=== PATIENT | female | born 1970 | race African-American/Black ===

== ENCOUNTER 2017-11-22 15:08 | Observation (INO) | payer OTHER ==
[~2017-11-22] VITALS: Ht 175.3 cm; Wt 120.2 kg
--- OUTSIDE RECORDS SUMMARY | 2017-11-22 15:11 | XMS REPORT | Clinical Summary ---
Author Author MELVI [facility] Address Unknown Phone Unavailable Care Team Providers Care Yard Spotter Name Role Phone PCP Unavailable Allergies No Known Allergies Current Medications No known medications Active Problems Not on file Social History Tobacco Use Types Packs/Day Years Used Date Current Every Day Smoker Alcohol Use Drinks/Week oz/Week Comments No Sex Assigned at Date Recorded Not on file Last Filed Vital Signs Not on file Plan of Treatment Not on file Results Not on fileafter 11/21/2016
[2017-11-22] MEDS ORDERED: ASPIRIN 81 MG CHEW TAB PO ONE ×2 (15:45→17:45)
--- NOTE | 2017-11-22 16:09 | Diagnostic Imaging Report ---
Examination: Single AP view of the chest. COMPARISON: None. INDICATION: Chest pain DISCUSSION: The lungs are hypoinflated, without focal consolidation, pleural effusion, or pneumothorax. Cardiomediastinal contour and pulmonary vasculature are within normal limits when accounting for portable, AP technique and degree of inspiratory effort. No acute osseous abnormalities. IMPRESSION: Low lung volumes without acute cardiopulmonary abnormality. Signed by: Dr. Jose Elias Maradiaga M.D. on 11/22/2017 4:06 PM
[2017-11-22 16:22] LABS: BASOPHILS % 0.5 % (0.0-1.0); EOSINOPHILS # (AUTO) 0.1 (0.0-0.4); EOSINOPHILS % 2.2 % (0.0-6.0); HEMATOCRIT 37.2 % (34.2-44.1); HEMOGLOBIN 12.4 g/dL (12.0-16.0); MEAN CORPUSCULAR HEMOGLOBIN 28.4 pg (28-32); MEAN CORPUSCULAR HGB CONC 33.3 g/dL (31-35); MEAN CORPUSCULAR VOLUME 85.1 fL (81-99); MONOCYTES # (AUTO) 0.5 (0.2-0.8); MONOCYTES % 7.5 % (4.4-11.3); NEUTROPHILS # (AUTO) 3.7 (2.1-6.9); NEUTROPHILS % 58.3 % (38.7-80.0); PLATELET COUNT 174 x10e3/uL (140-360); RED BLOOD COUNT 4.37 x10e6/uL (3.6-5.1); RED CELL DISTRIBUTION WIDTH 12.5 % (11.7-14.4)
[2017-11-22 16:33] LABS: INR 0.87; PROTHROMBIN TIME 12.7 seconds (11.9-14.5)
[2017-11-22 16:34] LABS: PARTIAL THROMBOPLASTIN TIME 25.2 seconds (23.8-35.5)
[2017-11-22 16:36] LABS: CLARITY,URINE CLEAR (CLEAR); COLOR,URINE YELLOW (YELLOW)
[2017-11-22 16:37] LABS: BILIRUBIN,URINE NEGATIVE (NEGATIVE); KETONES,URINE NEGATIVE (NEGATIVE); LEUKOCYTE ESTERASE ,URINE NEGATIVE (NEGATIVE); NITRITE,URINE NEGATIVE (NEGATIVE); PROTEIN,URINE DIPSTICK NEGATIVE (NEGATIVE); URINE UROBILINOGEN 0.2 mg/dL (0.2 - 1)
[2017-11-22 16:42] LABS: ALANINE AMINOTRANSFERASE 30 IU/L (0-55); ALBUMIN 4.1 g/dL (3.5-5.0); ALBUMIN/GLOBULIN RATIO 1.4 (0.8-2.0); ALKALINE PHOSPHATASE 62 IU/L (40-150); ANION GAP 15.7 mmol/L (8-16); BLOOD UREA NITROGEN 11 mg/dL (7-26); BUN/CREATININE RATIO 12 (6-25); CALCIUM 9.4 mg/dL (8.4-10.2); CARBON DIOXIDE 23 mmol/L (22-29); CHLORIDE 104 mmol/L (98-107); CREATINE KINASE 125 IU/L (29-168); CREATININE, SERUM 0.93 mg/dL (0.57-1.11); EST GLOMERULAR FILTRATION RATE > 60 ML/MIN (60-); GLUCOSE 82 mg/dL (74-118); POTASSIUM 3.7 mmol/L (3.5-5.1); SODIUM 139 mmol/L (136-145)
[2017-11-22 16:51] LABS: CHOL/HDL RATIO 3.8 (3.0-3.6)
[2017-11-22 16:52] LABS: BACTERIA,URINE RARE /HPF; EPITHELIAL CELLS,URINE FEW /LPF
[2017-11-22] MEDS ORDERED: NITROGLYCERIN 0.4 MG SUBL SL PRN (17:45)
[2017-11-22] MEDS ORDERED: ONDANSETRON HCL INJ 2 MG/ML VIAL IV PRN (18:15)
[2017-11-22] MEDS ORDERED: HYDRALAZINE HCL 20 MG/ML VIAL IV PRN (18:15)
[2017-11-22] MEDS ORDERED: ACETAMINOPHEN 325 MG TAB PO PRN (18:15)
[2017-11-22] MEDS: FAMOTIDINE 20 MG TAB PO SCH (18:31)
--- OUTSIDE RECORDS SUMMARY | 2017-11-22 19:00 | XMS REPORT ---
Author Author [facility] Address Unknown Phone Unavailable Care Team Providers Care Assembler Steam [employer] Gas Turbine Name Role Phone Jodee GABRIEL Unavailable Unavailable Problems This patient has no known problems. Allergies, Adverse Reactions, Alerts This patient has no known allergies or adverse reactions. Medications This patient has no known medications. Results Test Description Test Time Test Comments Text Results Atomic Results Result Comments CHEST SINGLE (PORTABLE) 2017-11-22 16:05:00 [place] [address] Patient Name: EREN FELIX MR #: [id number] : 1970 Age/Sex: 47/F Req #: [id number] Adm Physician: Ordered by: ALEXI GABRIEL MD Report #: [id number] Location: ER Room/Bed: Procedure: [id number] DX/CHEST SINGLE (PORTABLE) Exam Date: Exam Time: REPORT STATUS: Signed Examination: Single AP view of the chest. COMPARISON: None. INDICATION: Chest pain DISCUSSION: The lungs are hypoinflated, without focal consolidation, pleural effusion, or pneumothorax. Cardiomediastinal contour and pulmonary vasculature are within normal limits when accounting for portable, AP technique and degree of inspiratory effort. No acute osseous abnormalities. IMPRESSION: Low lung volumes without acute cardiopulmonary abnormality. Signed by: Dr. Chris Olivarez M.D. on 11/22/2017 4:06 PM Dictated By: CHRIS OLIVAREZ MD [id number] Transcribed By: BERLIN on 11/22/17 160 COPY TO: ALEXI GABRIEL MD
--- OUTSIDE RECORDS SUMMARY | 2017-11-22 19:00 | XMS REPORT | Clinical Summary ---
Author Author MELVI [facility] Address Unknown Phone Unavailable Care Team Providers Care Human Services Assistant Name Role Phone PCP Unavailable Allergies No [...]
[2017-11-22 20:34] VITALS: BP 116/58
[2017-11-22 20:35] VITALS: BP 116/58
[2017-11-22] MEDS ORDERED: GLIPIZIDE10 MG PO (22:31)
[2017-11-22] MEDS: INSULIN LISPRO 100 UNIT/1 ML 3ML VIAL SQ SCH (22:56)
[2017-11-23] VITALS: BP 118/58
[2017-11-23 00:26] LABS: CREATINE KINASE 116 IU/L (29-168)
[2017-11-23 04:00] VITALS: BP 106/53
[2017-11-23 05:28] LABS: CREATINE KINASE MB 1.5 ng/mL (0-5.0)
[2017-11-23] MEDS: FAMOTIDINE 20 MG TAB PO SCH (05:57)
[2017-11-23 07:16] VITALS: BP 119/56
[2017-11-23] MEDS: INSULIN LISPRO 100 UNIT/1 ML 3ML VIAL SQ SCH (07:30)
[2017-11-23 08:55] VITALS: BP 119/56
[2017-11-23] MEDS ORDERED: ASPIRIN 81 MG ENTERIC COATED PO SCH (09:00)
[2017-11-23 11:09] VITALS: BP 120/58
--- NOTE | 2017-11-23 11:42 | Consultation ---
DATE OF CONSULTATION: REASON FOR CONSULTATION: Chest pain. HISTORY OF PRESENT ILLNESS: This is a 47-year-old female with history of diabetes since 2015 and hyperlipidemia. Patient presents to [facility] ER with complaints of chest pain for about 2 weeks. Cardiology was consulted to evaluate patient. Patient seen in room in no acute distress, reports having right-sided chest pain for about 2 weeks off and on, describes the chest pain as "discomfort" for the past few weeks. Denies any associated symptoms with episodes, again lasting for few minutes at a time and occurs several times a day. However, patient came to the ER because of the strong family history of CAD. Her father at age of 54 from [place] and patient is very concerned. Currently, patient is with no chest pain. PAST MEDICAL HISTORY: Diabetes uncontrolled since 2014 and hyperlipidemia. SURGICAL HISTORY: Breast augmentation, hysterectomy. FAMILY HISTORY: Mother at age 52 from lymphoma. Father at age 54 from [place]. SOCIAL HISTORY: She is single. 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 She is a former smoker. She quit in 2017. She would smoke half a pack per day. Apparently, alcohol use is social. Also, marijuana use is social. Reports last episode about 6 months ago. HOME MEDICATIONS: Trulicity once a week, glipizide 10 mg b.i.d., and also she takes cholesterol medicine, but does not know which medication. ALLERGIES: NO KNOWN ALLERGIES. REVIEW OF SYSTEMS GENERAL: Denies any weight changes, fatigue, weakness, fevers, chills, night sweats. SKIN: No rashes, sores, or lumps. HEENT: Denies any headaches, nausea, or vomiting. Positive for vision changes, blurriness. Denies vertigo, earaches, discharge, any sneezing, stuffiness, epistaxis, sore throat, hoarseness, swollen neck. CARDIAC: Positive for chest pain as above. Positive for dyspnea on exertion. Positive for intermittent palpitations. Denies any orthopnea, PND. RESPIRATORY: Position for dyspnea on exertion. Denies any hemoptysis. GI: Good appetite. No nausea, vomiting, diarrhea, constipation, melena, hematochezia, abdominal pain. URINARY: Denies any frequency, urgency, polyuria, dysuria, hematuria. VASCULAR: Denies any lower extremity edema, claudication, varicose veins. MUSCULOSKELETAL: Denies any muscle weakness, joint pains, back pains. NEUROLOGIC: Does complaint of lower extremity numbness, tingling. Denies any tremors, paralysis, fainting, blackouts, seizures. HEMATOLOGY: Denies any anemia, easy bruising. ENDOCRINE: Denies any heat or cold intolerance, any polyuria, polydipsia, polyphagia. PHYSICAL EXAMINATION VITALS: Height 69 inches, weight 265 pounds. BMI 39. Temperature 97.9, pulse 65, respiratory rate 16, blood pressure 119/56, pulse ox 98% on room air. GENERAL: Appears stated age. Reliable informant. SKIN: No rashes or bruises noted. HEENT: Normocephalic. Pupils are equal and reactive. Extraocular movements intact. Trachea midline. No thyromegaly. No carotid bruit noted. HEART: Regular rate and rhythm. No murmurs, clicks, gallops. PMI 4th and 5th intercostal space. LUNGS: Bilateral breast sounds clear to auscultation. Good airway entry and exit. ABDOMEN: Soft, nontender, nondistended. No organomegaly noted. MUSCULOSKELETAL: Good muscle strength throughout. No lower extremity edema. VASCULAR: +2 bilateral radial pulses. +1 DP, PT pulses bilaterally. NEUROLOGIC: Cranial nerves II through XII seem intact. LABS: Sodium 139, potassium 3.7, chloride 104, BUN 11, creatinine 0.9. A1c 8.8. Troponin less than 0.001, next less than 0.001, next 0.016. Hematology: White count 6.3, hemoglobin 12.4, hematocrit 37, platelets 174. EKG showing normal sinus rhythm with left axis deviation. IMAGING: Chest x-ray, no acute abnormalities. ASSESSMENT 1. Chest pain. 2. Diabetes, uncontrolled. 3. Obesity. 4. Family history of coronary artery disease. 5. Former smoker. PLAN: Patient presents with chest pain with mixed features. Negative enzymes x3 thus far. EKG without changes suggest no acute event. However, patient with very strong family history of CAD. Patient is very concerned and would like ischemic evaluation. We will obtain echo to evaluate heart function structure. We will go ahead and do a stress test to evaluate for symptoms. Also continue aspirin therapy for now. We will start low-dose statin therapy for now. Thank you very much for this consult. We will continue to follow patient and adjust cardiac therapy as course indicates. Dictated by: Jose Elias Arnold NP Job#: [id number] VAS
--- NOTE | 2017-11-23 12:27 | Cardiology Report ---
DATE OF STUDY: November 23, 2017 CARDIAC STRESS TEST TECHNICAL DETAILS: The protocol is Mook with target heart rate of 148 per minute. RESULTS 1. Patient exercised for a total of 8 minutes 31 seconds. 2. Heart rate increased from 62 per minute to 149 per minute. 3. Blood pressure increased from 140/60 to 167/107. 4. No chest pain. 5. No EKG changes. IMPRESSION: Negative cardiac stress test. Limitations of a negative cardiac stress test are explained and discussed. Job#: [id number]
--- NOTE | 2017-11-23 15:02 | Discharge Summary ---
PRIMARY CARE PHYSICIAN: ROCKY SKY MD with [facility]. FINAL DIAGNOSIS: Non-cardiac chest pain possibly due to anxiety or stress. SECONDARY DIAGNOSES 1. Diabetes. 2. Obesity. 3. Dyslipidemia. NUMERICAL CONTROL OPERATOR: Dr. Hoffman. PROCEDURES/STUDIES PERFORMED: 1. Echocardiogram. 2. Stress test. HISTORY: Per H&P. HOSPITAL COURSE: The patient had 3 negative troponins; therefore, no myocardial infarction. Stress test was done due to multiple risk factors, which was negative. The patient was reassured. Her echocardiogram preliminary was unremarkable. The patient's hemoglobin A1c is down to 8.8%. The patient is going home today. I have also notified her primary care physician about this hospitalization. The patient was seen and examined today. CONDITION ON DISCHARGE: Stable. DISCHARGE MEDICATIONS: Please see medication reconciliation form. XAVI ASHFORD M.D. Job#: [id number] cc:ROCKY SKY MD
[2017-11-23] MEDS ORDERED: ATORVASTATIN 10 MG TAB PO SCH (21:00)
== END 2017-11-23 13:25 | disposition home or self-care (01) ==
LOC: ER 15:08 → ERHOLD 17:36 → IMCU 20:35
PROVIDERS: ADMIT Internal Medicine; ATTEND Internal Medicine
DX: R07.9 Chest pain, unspecified (principal); E11.65 Type 2 diabetes mellitus with hyperglycemia; E78.5 Hyperlipidemia, unspecified; E66.9 Obesity, unspecified; Z68.39 Body mass index [BMI] 39.0-39.9, adult; Z82.49 Family history of ischemic heart disease and other diseases of the circulatory system; Z87.891 Personal history of nicotine dependence; Z79.84 Long term (current) use of oral hypoglycemic drugs
CPT/HCPCS: 36415; 71045; 80053; 80061; 81001; 82550 ×2; 82553 ×2; 82948 ×2; 83036; 83880; 84484 ×2; 85025; 85610; 85730; 93005; 93017; 93306; 99284; G0378 ×2

== ENCOUNTER 2018-07-08 12:09 | Emergency (ER) | payer OTHER ==
[~2018-07-08] VITALS: Ht 175.3 cm; Wt 122.5 kg
[~2018-07-08 12:09] MED LIST: GLIPIZIDE10 MG PO
--- OUTSIDE RECORDS SUMMARY | 2018-07-08 12:11 | XMS REPORT | Clinical Summary ---
Author Author [facility]ELVI [facility] Address Unknown Phone Unavailable Care Team Providers Care Master Printer Name Role Phone Sharpless PCP Allergies No Known Allergies Medications No known medications Active Problems Not on file Social History Date Tobacco Use Types Packs/Day Years Used Current Every Day Smoker Alcohol Use Drinks/Week oz/Week Comments No Sex Assigned at Date Recorded Not on file Industry Job Start Date Occupation Not on file Not on file Not on file Travel End Travel History Travel Start No recent travel history available. Last Filed Vital Signs Not on file Plan of Treatment Not on file Results Not on fileafter 07/07/2017 Insurance Payer Benefit Subscriber ID Type Phone Address Plan / Group [employer] - [place] [employer] [place] x[place] HMO/POS HMO/POS OPEN ACCESS
[2018-07-08] MEDS ORDERED: TRAMADOL HCL 50 MG TAB PO NR (12:30)
[2018-07-08] MEDS ORDERED: HYDROCODONE/APAP 10MG-325MG TAB PO ONE (12:45)
--- NOTE | 2018-07-08 13:53 | Diagnostic Imaging Report ---
FOOT LEFT COMPLETE - 3 views HISTORY: Pain COMPARISON: None available. FINDINGS: Bones: No acute displaced fracture. Osseous alignment is within normal limits. Small plantar calcaneal enthesophyte. Joints: The joint spaces are well-maintained. Soft tissues: The soft tissues appear unremarkable. IMPRESSION: No acute radiographic abnormality. Signed by: Dr. Mook Padilla MD on 07/08/2018 1:49 PM
[2018-07-08 15:21] VITALS: BP 130/80
== END 2018-07-08 15:23 | disposition home or self-care (01) ==
LOC: ER 12:09
DX: M79.672 Pain in left foot (principal); S96.912A Strain of unspecified muscle and tendon at ankle and foot level, left foot, initial encounter; E11.9 Type 2 diabetes mellitus without complications; E78.5 Hyperlipidemia, unspecified
CPT/HCPCS: 99283

== ENCOUNTER 2020-12-28 22:37 | Emergency (ER) | payer OTHER ==
[~2020-12-28] VITALS: Ht 175.3 cm; Wt 122.5 kg
[2020-12-28] MEDS ORDERED: KETOROLAC TROMETHAMINE 30 MG/ML VIAL IV STA (22:47)
[2020-12-28] MEDS ORDERED: ONDANSETRON HCL INJ 2MG/ML 2ML 2 MG/ML VIAL IV STA (22:47)
[2020-12-28 23:00] LABS: BASOPHILS % 0.5 % (0.0-1.0); EOSINOPHILS # (AUTO) 0.2 (0.0-0.4); EOSINOPHILS % 2.7 % (0.0-6.0); HEMOGLOBIN 12.7 g/dL (12.0-16.0); LYMPHOCYTES # (AUTO) 2.5 (1.0-3.2); LYMPHOCYTES % 34.7 % (18.0-39.1); MEAN CORPUSCULAR HEMOGLOBIN 28.1 pg (28-32); MEAN CORPUSCULAR HGB CONC 32.6 g/dL (31-35); MEAN CORPUSCULAR VOLUME 86.3 fL (81-99); MONOCYTES # (AUTO) 0.4 (0.2-0.8); MONOCYTES % 5.3 % (4.4-11.3); NEUTROPHILS # (AUTO) 4.1 (2.1-6.9); NEUTROPHILS % 56.4 % (38.7-80.0); PLATELET COUNT 152 x10e3/uL (140-360); RED BLOOD COUNT 4.52 x10e6/uL (3.6-5.1); RED CELL DISTRIBUTION WIDTH 12.7 % (11.7-14.4)
[2020-12-28 23:20] LABS: AMYLASE 64 U/L (25-125); LIPASE 38 U/L (8-78)
[2020-12-28 23:22] LABS: ALBUMIN 4.3 g/dL (3.5-5.0); ALBUMIN/GLOBULIN RATIO 1.3 (0.8-2.0); ANION GAP 17.1 mmol/L (8-16); CALCIUM 9.2 mg/dL (8.4-10.2); CREATININE, SERUM 1.19 mg/dL (0.57-1.11); POTASSIUM 4.1 mmol/L (3.5-5.1)
[2020-12-28 23:33] LABS: CLARITY,URINE CLEAR (CLEAR); COLOR,URINE YELLOW (YELLOW); LEUKOCYTE ESTERASE ,URINE NEGATIVE (NEGATIVE); NITRITE,URINE NEGATIVE (NEGATIVE); PROTEIN,URINE DIPSTICK NEGATIVE (NEGATIVE)
[2020-12-28 23:34] LABS: BACTERIA,URINE RARE /HPF; EPITHELIAL CELLS,URINE FEW /LPF; KETONES,URINE NEGATIVE (NEGATIVE); RBC,URINE 0-5 /HPF (0-5); URINE UROBILINOGEN 0.2 mg/dL (0.2 - 1); WBC,URINE (MAN) 0-5 /HPF (0-5)
[2020-12-28] MEDS ORDERED: Morphine 4mg Syringe 4 MG/ML INJ IV ONE (23:45)
[2020-12-29] MEDS ORDERED: DICYCLOMINE HCL 20 MG/2 ML VIAL IM ONE (00:45)
[2020-12-29 01:00] VITALS: BP 122/75
== END 2020-12-29 00:50 | disposition home or self-care (01) ==
LOC: ER 22:45
DX: R10.11 Right upper quadrant pain (principal); M54.50 Low back pain, unspecified; K76.0 Fatty (change of) liver, not elsewhere classified
CPT/HCPCS: 36415; 74176; 80053; 81001; 82150; 83690; 85025; 99284; J1885; J2270; J2405

== ENCOUNTER 2024-10-20 13:36 | Emergency (ER) | payer OTHER ==
[~2024-10-20] VITALS: Ht 175.3 cm; Wt 122.5 kg
[2024-10-20 14:06] LABS: BASOPHILS % 0.5 % (0.0-1.0); EOSINOPHILS % 2.5 % (0.0-6.0); LYMPHOCYTES % 30.5 % (18.0-39.1); MONOCYTES % 5.9 % (4.4-11.3); NEUTROPHILS % 60.3 % (38.7-80.0); RED CELL DISTRIBUTION WIDTH 12.7 % (11.7-14.4)
[2024-10-20 14:37] LABS: EST GLOMERULAR FILTRATION RATE 72 ML/MIN (>=60)
[2024-10-20] MEDS: KETOROLAC TROMETHAMINE 30 MG/ML VIAL IV STA (14:40)
[2024-10-20 15:51] VITALS: TEMP 98
[2024-10-20 15:54] VITALS: PULSE 69; RESP 17
[2024-10-20] MEDS ORDERED: ULTRAM 50MG50 MG PO (16:02)
[2024-10-20] MEDS: ONDANSETRON HCL INJ 2MG/ML 2ML 2 MG/ML VIAL IV STA (16:20)
[2024-10-20] MEDS: Morphine 4mg INJECTION 4 MG/ML INJ IV STA (16:20)
[2024-10-20 17:14] VITALS: BP 121/69; PULSE 71; RESP 18; TEMP 98.3; O2SAT 98
== END 2024-10-20 16:54 | disposition home or self-care (01) ==
LOC: ER 13:39
DX: M79.602 Pain in left arm (principal); R07.89 Other chest pain; M47.896 Other spondylosis, lumbar region; M54.2 Cervicalgia; E11.65 Type 2 diabetes mellitus with hyperglycemia; E78.5 Hyperlipidemia, unspecified
CPT/HCPCS: 36415; 71045; 72125; 72131; 80053; 82550; 83690; 83880; 84484; 85025; 93005; 99284; J1885; J2270; J2405